=== PATIENT | female | born 1950 | race Caucasian/White ===

== ENCOUNTER → 2022-03-10 | Outpatient (CLI) | payer MEDICARE, BC ==
--- NOTE | 2022-03-10 09:54 | Diagnostic Imaging Report ---
CLINICAL INDICATION: Patient states she has chronic low back pain. EXAM: MRI of the lumbar spine without contrast. Sequences include sagittal T2, sagittal T1, sagittal T2 fat-sat, and axial T2. COMPARISONS: None. FINDINGS: There is no acute lumbar spine fracture or dislocation. There is very minimal Modic type II degenerative signal changes anteriorly at the L2-L3 level anteriorly. There is a 12 mm cystic structure in left upper quadrant which may be associated with the spleen. There are mild hypertrophic spurs involving the lumbar spine. There are small perineural cysts involving the bilateral T12-L1 level, right L3-L4 neural foramen region and bilateral L5-S1 neural foramina regions. Largest measures 12 mm in left L5-S1 region. L1-L2 and L2-L3: Unremarkable. L3-L4: There is mild diffuse disk bulge. There are annular tears involving the left foraminal aspect of this and anterior aspects of this. There is no significant central canal stenosis. There is mild bilateral neural foramen narrowing. L4-L5: There is a diffuse disk bulge with mild bilateral facet arthropathy. There is no significant central canal stenosis. There is moderate to severe bilateral neural foramen narrowing. L5-S1: There is mild bilateral facet arthropathy. There is no significant central canal stenosis. There is a subtle posterior disk bulge in the right subarticular region. There is mild bilateral neural foramen narrowing with right side more than left. IMPRESSION: 1: There is no acute lumbar spine fracture or dislocation. 2: There is multilevel lumbar spine degenerative disk disease which is described above. Dictated by: Dictated on workstation # [id number]
== END ==
LOC: RAD 08:45
PROVIDERS: ATTEND Registered Nurse
DX: M47.816 Spondylosis without myelopathy or radiculopathy, lumbar region (principal); M47.817 Spondylosis without myelopathy or radiculopathy, lumbosacral region; M51.26 Other intervertebral disc displacement, lumbar region; M51.27 Other intervertebral disc displacement, lumbosacral region; M51.36 Other intervertebral disc degeneration, lumbar region; M48.061 Spinal stenosis, lumbar region without neurogenic claudication; M48.07 Spinal stenosis, lumbosacral region; G96.191 Perineural cyst
CPT/HCPCS: 72148